=== PATIENT | female | born 1990 | race Two or more races ===

== ENCOUNTER 2019-02-01 15:56 | Emergency (ER) | payer MEDICAID, OTHER ==
[~2019-02-01] VITALS: Ht 165.1 cm; Wt 72.0 kg
[~2019-02-01 15:56] MED LIST: AMOX600S36 PO; HYDR473S51 PO; ONDA4TAB10 PO
[2019-02-01 16:07] VITALS: BP 134/86
== END 2019-02-01 17:23 | disposition home or self-care (01) ==
LOC: ED 17:18
DX: S61.051A Open bite of right thumb without damage to nail, initial encounter (principal); W54.0XXA Bitten by dog, initial encounter; Y93.89 Activity, other specified; Y92.009 Unspecified place in unspecified non-institutional (private) residence as the place of occurrence of the external cause; Y99.8 Other external cause status
CPT/HCPCS: 99283

== ENCOUNTER 2020-11-28 11:44 | Emergency (ER) | payer SELFPAY ==
[~2020-11-28] VITALS: Ht 165.1 cm; Wt 81.6 kg
[2020-11-28 11:46] VITALS: BP 125/86
[2020-11-28] MEDS ORDERED: IBUPROFEN 600 MG TABLET PO ONE (12:00)
[2020-11-28] MEDS ORDERED: DEXAMETHASONE 4 MG TABLET PO ONE (12:00)
[2020-11-28] MEDS ORDERED: DEXAMETHASONE 4 MG TABLET ONE (12:01)
[2020-11-28] MEDS ORDERED: IBUPROFEN 600 MG TABLET ONE (12:01)
--- NOTE | 2020-11-28 12:27 | NUR ---
Patient given discharge instructions and they have confirmed that they understand the instructions. Patient ambulatory with steady gait.
== END 2020-11-28 12:29 | disposition home or self-care (01) ==
LOC: ED 12:17
DX: J02.0 Streptococcal pharyngitis (principal); R09.81 Nasal congestion
CPT/HCPCS: 99283

== ENCOUNTER 2020-12-01 11:12 | Emergency (ER) | payer SELFPAY ==
[~2020-12-01] VITALS: Ht 165.1 cm; Wt 83.3 kg
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
[2020-12-01] MEDS ORDERED: AMOX250C17 PO (11:37)
[2020-12-01 12:20] LABS: BASOPHILS % (AUTO) 1 % (0-1); EOSINOPHILS % (AUTO) 2 % (1-7); LYMPHOCYTES % (AUTO) 34 % (22-44); MEAN CORPUSCULAR HEMOGLOBIN 29.9 pg (27.0-34.8); MEAN CORPUSCULAR HGB CONC 33.7 g/dL (32.4-35.8); MONOCYTES % (AUTO) 9 % (2-9); NEUTROPHILS % (AUTO) 54 % (42-75); PLATELET COUNT 205 x10^3/uL (130-400); RED BLOOD COUNT 4.69 x10^6/uL (3.82-5.3); RED CELL DISTRIBUTION WIDTH 14.6 % (9.6-15.2)
--- NOTE | 2020-12-01 12:23 | NUR ---
pelvic bed placed in room. pelvic cart at bedside. provider aware.
[2020-12-01 12:25] LABS: MD NO
--- NOTE | 2020-12-01 12:55 | NUR ---
provider in room for pelvic. tech at bedside for assistance.
--- NOTE | 2020-12-01 13:14 | NUR ---
pelvic complete. genia rn at bedside for straight cath ua due to excessive vaginal bleeding.
--- NOTE | 2020-12-01 13:20 | NUR ---
STRAIGHT CATH USING STERILE TECHNIQUE, URINE TO LAB, PT TOLERATED WELL
[2020-12-01 13:39] LABS: MICROSCOPIC NOT IND
[2020-12-01 13:53] VITALS: BP 121/66
--- NOTE | 2020-12-01 13:54 | NUR ---
PT BACK FROM US
[2020-12-01 14:21] LABS: HCG UR SG 1.019 (1.003-1.030)
== END 2020-12-01 15:15 | disposition home or self-care (01) ==
LOC: ED 14:50
DX: N83.292 Other ovarian cyst, left side (principal)
CPT/HCPCS: 36415; 76830; 81003; 81025; 85025; 99284